=== PATIENT | female | born 2000 | race Caucasian/White ===

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

== ENCOUNTER 2020-04-28 23:05 | Emergency (ER) | payer OTHER ==
[~2020-04-28] VITALS: Ht 165.1 cm; Wt 111.1 kg
[2020-04-29 01:44] VITALS: BP 154/91; TEMP 99.5
== END 2020-04-29 01:50 | disposition home or self-care (01) ==
LOC: ED 23:05
PROC: 0H95XZZ Drainage of Chest Skin, External Approach (ICD-10-PCS; principal; 2020-04-29)
DX: L02.213 Cutaneous abscess of chest wall (principal)
CPT/HCPCS: 87070; 87205; 96365; 96375; 99284; J2175; J2405; J2543